=== PATIENT | male | born 1995 | race African-American/Black ===

== ENCOUNTER 2021-12-23 23:08 | Emergency (ER) | payer OTHER, SELFPAY ==
--- NOTE | ~2021-12-23 | XR_ITS ---
EXAMINATION: XR knee RT min 4V DATE: 12/23/2021 23:39 INDICATION: Right knee pain and swelling. TECHNIQUE: 4 views of right knee were obtained. COMPARISON: None. FINDINGS: Bone alignment is normal. No fracture. Joint spaces are normal. There is a moderate-sized k nee joint effusion. IMPRESSION: 1. Moderate-sized right knee joint effusion. Reviewed, dictated and finalized at location A.
[2021-12-23 23:11] VITALS: BP 141/88; PULSE 100; RESP 16; TEMP 37.2; O2SAT 99
--- NOTE | 2021-12-24 00:13 | ED.LOWEXIN ---
HPI - Extremity Injury (Lower) General Chief Complaint: Extremity Injury, Lower <BARTOLOME Garrett Last Filed: 12/24/21 00:42> Stated Complaint: RIGHT KNEE PAIN <BARTOLOME Garrett Last Filed: 12/24/21 00:42> Time Seen by Provider: 12/23/21 23:27 <BARTOLOME Garrett Last Filed: 12/24/21 00:42> Source: patient <BARTOLOME Garrett Last Filed: 12/24/21 00:42> Mode of arrival: ambulatory <BARTOLOME Garrett Last Filed: 12/24/21 00:42> Limitations: no limitations <BARTOLOME Garrett Last Filed: 12/24/21 00:42> History of Present Illness HPI Narrative: Patient is a 26-year-old male who presents the ED with report of right knee pain. Patient reports he was playing flag football earlier today when he tried turning to the right and was hit by another player in his right knee. He states he heard 3 pops in his knee. He fell down with his right knee flexed behind him. Patient complains of severe pain to his entire knee anteriorly and posteriorly. He has been unable to ambulate due to the pain. He took Tylenol and ibuprofen around 4 hours ago. No other injuries. No numbness, tingling. <BARTOLOME Garrett Last Filed: 12/24/21 00:42> Related Data Allergies/Adverse Reactions: Allergies Allergy/AdvReac Type Severity Reaction Status Date / Time No Known Allergies Allergy Verified 12/23/21 23:13 <BARTOLOME Garrett Last Filed: 12/24/21 00:42> Review of Systems Review of Systems: CONSTITUTIONAL: Denies fever, chills, or sweats. MUSCULOSKELETAL: Reports right knee pain NEUROLOGIC: Denies tingling, numbness. <BARTOLOME Garrett Last Filed: 12/24/21 00:42> All systems reviewed & are unremarkable except as noted in HPI and below <Tayler Stevens PA-C - Last Filed: 12/24/21 00:42> [facility] Past Medical History Medical History: Medical History (Updated 12/24/21 @ 00:36 by Tayler Stevens PA-C) No pertinent past medical history <Tayler Stevens PA-C - Last Filed: 12/24/21 00:42> Surgical History Surgical History: Surgical History (Updated 12/24/21 @ 00:36 by Tayler Stevens PA-C) No pertinent past surgical history <Tayler Stevens PA-C - Last Filed: 12/24/21 00:42> Social History Social History: Social History (Updated 12/24/21 @ 00:36 by Tayler Stevens PA-C) Smoking status: Never smoker <Tayler Stevens PA-C - Last Filed: 12/24/21 00:42> Exam Narrative: GENERAL: Well appearing, well-nourished, non-toxic, in no acute distress. HEAD: Normocephalic, atraumatic. NECK: Supple. No adenopathy, no masses. RESPIRATORY: Airway patent, respirations nonlabored. CARDIOVASCULAR: Regular rate and rhythm without murmurs, rubs, or gallops. Pedal pulses 2+ and equal bilaterally. MUSCULOSKELETAL: Limited flexion range of motion of right knee to about 45 degrees. Unable to fully extend right knee due to pain. Palpable joint effusion of right knee, discomfort with ballottement of patella. Tenderness to palpation diffusely throughout right knee joint spaces, worst laterally and superiorly, also low posterior aspect of knee. Discomfort with varus stress testing, anterior and posterior drawer testing. Sensation intact. SKIN: Warm, dry, normal color. No rashes. NEURO: A&O X3. Speech clear. Cranial nerves II-XII grossly intact. No ataxic movements. PSYCHIATRIC: Appropriate mood and affect. Normal interaction. <Tayler Stevens PA-C - Last Filed: 12/24/21 00:42> Course MEAT GRADER/PA Physician Supervision For this patient encounter, I reviewed the MEAT GRADER or PA documentation, treatment plan, and medical decision making <Fareed Suoza MD - Last Filed: 12/24/21 02:22> Vital Signs Vital signs: Vital Signs Temperature 99.0 F 12/23/21 23:11 Pulse Rate 100 12/23/21 23:11 Respiratory Rate 16 12/23/21 23:11 Blood Pressure 141/88 H 12/23
[2021-12-24] MEDS: KETOROLAC (*BKC) 60 MG/2 ML VIAL IM (00:57)
== END 2021-12-24 01:10 | disposition home or self-care (01) ==
PROVIDERS: Emergency Provider Emergency Medicine
DX: M23.91 Unspecified internal derangement of right knee (principal); M25.461 Effusion, right knee
CPT/HCPCS: 73564; 96372; 99283; J1885